=== PATIENT | male | born 1940 | race Caucasian/White ===

== ENCOUNTER 2020-07-11 13:34 | Emergency (ER) | payer OTHER ==
[~2020-07-11] VITALS: Ht 158.8 cm; Wt 70.8 kg
[2020-07-11 13:53] VITALS: BP 179/109
--- NOTE | 2020-07-11 14:01 | NUR ---
amb to bed 03, pt handed urine sample cup
[2020-07-11] MEDS ORDERED: MORPHINE SULFATE 4 MG/ML SYR IVP ONE (14:20)
[2020-07-11] MEDS ORDERED: ONDANSETRON 4 MG/2 ML VIAL IVP ONE (14:20)
--- NOTE | 2020-07-11 14:20 | NUR ---
80 YEAR OLD MALE COMPLAINS OF LOWER ABDOMINAL PAIN THAT STARTED 2 DAYS AGO. PT STATES THAT HE HAS BEEN UNABLE TO DEFECATE X 3 DAYS AGO. PT DENIES NAUSEA, VOMITTING, OR DIARRHEA. PT AOX4, BREATHING EVEN AND UNLABORED, SKIN WARM AND DRY. BED IN LOWEST POSITION, LOCKED, BED RAIL UPX1. PMH - HTN ALLERGIES - NKA
[2020-07-11] MEDS ORDERED: NACL 0.9% 1,000 ML IV ONE (14:35)
[2020-07-11 14:37] LABS: BASOPHILS # (AUTO) 0.1 K/uL (0.00-0.22); EOSINOPHILS % (AUTO) 0.1 % (0.0-4.0); HEMOGLOBIN 15.9 g/dL (12.0-18.0); MEAN CORPUSCULAR HEMOGLOBIN 33 pg (27-31); RED CELL DISTRIBUTION WIDTH 13.5 % (11.6-13.7)
[2020-07-11 14:42] LABS: BASOPHILS % (AUTO) 0.8 % (0.0-2.0); HEMATOCRIT 45.1 % (36-52); LYMPHOCYTES # (AUTO) 0.8 K/uL (2.0-11.5); LYMPHOCYTES % (AUTO) 7.2 % (20.5-51.1); MEAN CORPUSCULAR HGB CONC 35 g/dL (33-37); MEAN CORPUSCULAR VOLUME 94.2 fL (80-94); MONOCYTES % (AUTO) 8.7 % (1.7-9.3); NEUTROPHILS # (AUTO) 9.7 K/uL (1.8-7.7); NEUTROPHILS % (AUTO) 83.2 % (42.2-75.2); PLATELET COUNT (AUTO) 297 K/uL (140-450); RED BLOOD CELL COUNT(AUTO) 4.79 MIL/uL (4.20-6.10); WHITE BLOOD COUNT (AUTO) 11.6 K/uL (4.8-10.8)
[2020-07-11 14:52] LABS: ANION GAP 18.8 (8-16); CARBON DIOXIDE 22.8 mmol/L (21-32); CHLORIDE 99 mmol/L (98-107); GLUCOSE 132 mg/dL (74-106); POTASSIUM 3.6 mmol/L (3.5-5.1); SODIUM SERUM 137 mmol/L (136-145); UREA NITROGEN, BLOOD 14 mg/dL (7-18)
[2020-07-11 14:56] LABS: ALBUMIN 4.1 g/dL (3.4-5.0); BILIRUBIN,DIRECT 0.2 mg/dL (0.0-0.3); TOTAL BILIRUBIN 0.8 mg/dL (0.0-1.0)
--- NOTE | 2020-07-11 16:00 | NUR ---
PT ALERT AND AWAKE, BREATHING EVEN AND UNLABORED
[2020-07-11 16:04] LABS: APPEARANCE,URINE CLEAR (CLEAR); BILIRUBIN,URINE NEGATIVE (NEGATIVE); BLOOD, URINE TRACE-I (NEGATIVE); COLOR,URINE YELLOW (YELLOW); LEUKOCYTE ESTERASE ,URINE NEGATIVE (NEGATIVE); NITRITE, URINE NEGATIVE (NEGATIVE); PH,URINE 5.5 (5.0-9.0); UGLUCOSE NEGATIVE (NEGATIVE)
[2020-07-11 16:23] LABS: RBC,URINE 0-5 /HPF (0-5)
[2020-07-11 16:24] LABS: WBC,URINE 0 /HPF (0-5)
--- NOTE | 2020-07-11 16:26 | NUR ---
X-Ray at bedside.
[2020-07-11] MEDS ORDERED: MAGNESIUM CITRATE 300 ML BTL PO ONE (18:00)
--- NOTE | 2020-07-11 18:00 | NUR ---
PT ALERT AND AWAKE, BREATHING EVEN AND UNLABORED
--- NOTE | 2020-07-11 18:06 | NUR ---
Dr. Harvey at bedside for procedure.
--- NOTE | 2020-07-11 18:08 | NUR ---
ERMD AT BEDSIDE WITH PROCEDURE
--- NOTE | 2020-07-11 18:30 | NUR ---
Patient discharged with v/s stable. Written and verbal after care instructions about constipation in adults given and explained. Patient alert, oriented and verbalized understanding of instructions. Ambulatory with steady gait. All questions addressed prior to discharge. ID band removed. Patient advised to follow up with PMD. Rx of bisacodyl given. Patient educated on indication of medication including possible reaction and side effects. Opportunity to ask questions provided and answered.
[2020-07-11 18:35] VITALS: BP 180/89
== END 2020-07-11 18:30 | disposition home or self-care (01) ==
LOC: MED 13:34
DX: K59.00 Constipation, unspecified (principal); Z85.9 Personal history of malignant neoplasm, unspecified
CPT/HCPCS: 36415; 71045; 74176; 80048; 80076; 81001; 83605; 83690; 84484; 85025; 93005; 96361; 96374; 96375; 99285; J2270; J2405; J7030; Q0092

== ENCOUNTER 2020-09-07 17:07 | Emergency (ER) | payer OTHER ==
[~2020-09-07] VITALS: Ht 172.7 cm; Wt 68.0 kg
[2020-09-07 17:21] VITALS: BP 161/91
--- NOTE | 2020-09-07 17:24 | NUR ---
triaged and waiting in lobby.
--- NOTE | 2020-09-07 17:25 | NUR ---
Dr. Glaser with pt for MSE.
[2020-09-07] MEDS ORDERED: DICYCLOMINE 10 MG CAP PO ONE (17:30)
[2020-09-07] MEDS ORDERED: ALUMINUM HYD/MAG/SIMETHICONE 30 ML UDC PO ONE (17:30)
[2020-09-07] MEDS ORDERED: SIMETHICONE 40 MG/0.6 ML PO ONE (17:30)
--- NOTE | 2020-09-07 17:54 | NUR ---
PATIENT ELOPED FROM FACILITY. DISCHARGE INSTRUCTIONS NOT GIVEN TO PATIENT. DR. smith NOTIFIED.
== END 2020-09-07 17:50 | disposition left against medical advice (07) ==
LOC: MED 17:07
DX: K59.00 Constipation, unspecified (principal); I10 Essential (primary) hypertension; F14.90 Cocaine use, unspecified, uncomplicated; Z85.46 Personal history of malignant neoplasm of prostate
CPT/HCPCS: 99281